=== PATIENT | male | born 1960 | race Caucasian/White ===

== ENCOUNTER 2021-01-04 08:30 | Emergency (ER) | payer OTHER ==
[~2021-01-04] VITALS: Ht 188 cm; Wt 113.0 kg
--- NOTE | 2021-01-04 08:51 | PHYS DOC ---
Past Medical History Past Medical History: No Pertinent History Past Surgical History: No Surgical History General Adult EDM: Chief Complaint: LACERATION/AVULSION HPI: HPI: Patient is a 60 year old male who was brought here for evaluation of crush injury to his right thumb, happened at work prior to arrival. Patient said his right thumb got caught between machine roller. He is not up to date on his tetanus vaccination status. Patient denied any other injury. Review of Systems: Review of Systems: Constitutional: Denies fever or chills. [] Eyes: Denies change in visual acuity. [] HENT: Denies nasal congestion or sore throat. [] Respiratory: Denies cough or shortness of breath. [] Cardiovascular: Denies chest pain or edema. [] GI: Denies abdominal pain, nausea, vomiting, bloody stools or diarrhea. [] : Denies dysuria. [] Musculoskeletal: Positive for right thumb injury. Integument: Denies rash. [] Neurologic: Denies headache, focal weakness or sensory changes. [] Endocrine: Denies polyuria or polydipsia. [] Lymphatic: Denies swollen glands. [] Psychiatric: Denies depression or anxiety. [] Heart Score: Risk Factors: Risk Factors: DM, Current or recent (<one month) smoker, HTN, HLP, family history of CAD, obesity. Risk Scores: Score 0 - 3: 2.5% MACE over next 6 weeks - Discharge Home Score 4 - 6: 20.3% MACE over next 6 weeks - Admit for Clinical Observation Score 7 - 10: 72.7% MACE over next 6 weeks - Early Invasive Strategies Physical Exam: PE: Constitutional: Well developed, well nourished, no acute distress, non-toxic appearance. [] HENT: Normocephalic, atraumatic, bilateral external ears normal, oropharynx moist, no oral exudates, nose normal. [] Eyes: PERRLA, EOMI, conjunctiva normal, no discharge. [] Neck: Normal range of motion, no tenderness, supple, no stridor. [] Cardiovascular:Heart rate regular rhythm, no murmur [] Lungs & Thorax: Bilateral breath sounds clear to auscultation [] Abdomen: Bowel sounds normal, soft, no tenderness, no masses, no pulsatile masses. [] Skin: Warm, dry, no erythema, no rash. [] Back: No tenderness, no CVA tenderness. [] Extremities: The pad of the right thumb with crushed injury, skin was jagged, contused, lacerated multiple place, no bone exposed, actively bleeding...No tendon injury. Neurologic: Alert and oriented X 3, normal motor function, normal sensory function, no focal deficits noted. [] Psychologic: Affect normal, judgement normal, mood normal. [] EKG: EKG: [] Radiology/Procedures: Radiology/Procedures: [][facility] [address] [place] [address] IMAGING REPORT Signed PATIENT: KARINE HAND JACCOUNT: [id number] : 1960 LOCATION: ER AGE: 60 SEX: M EXAM STATUS: REG ER ORD. PHYSICIAN: HOLLI PINA DO REASON: right thumb injury, smashed in printing press PROCEDURE: FINGER(S) RIGHT XR FINGER(S)_RIGHT 2+VIEWS DATE: 01/04/2021 8:55 AM INDICATION: right thumb injury, smashed in printing press / Spl. Instructions: / History: COMPARISON: None. FINDINGS: Bones: There is no evidence of acute fracture or dislocation. Joints: Mild degenerative changes of the first CMC joint and IP joints. Miscellaneous: Distal first digit soft tissue injury. No radiopaque foreign body. IMPRESSION: No evidence of acute fracture. Electronically signed by: Malou Reeves MD (01/04/2021 9:35 AM) [id number] DICTATED and SIGNED BY: MALOU REEVES MD DATE: 01/04/21 [id number] Laceration Procedure: complex laceration of the pad of right thumb Location: PAD OF RIGHT THUMB Anesthesia: DIGITAL BLOCK WITH 8 ML OF .5% MARCAINE. total lenght of laceration: 6 cm Number of sutures: 20 Suture Material: 4-0-nylon Technique: simple interrupted one layer Patient tolerated procedure well. The wound was dressed with: triple antibiotic oitnment,xerofoam nonstick gauze. Course & Med Decision Making: Course & Med Decision Making Pertinent Labs and Imaging studies reviewed. (See chart for details) Patient is a 60-year-old male who sustained a complex laceration of the pad of the right thumb. The wound was clean thoroughly with saline and Betadine , the laceration was repaired in the ER, x-ray did not show any evidence of fracture. Patient was given tetanus vaccination. Patient is scheduled to see the hand surgeon at [facility] at 2 pm tomorrow. Patient was discharged home with Keflex for antibiotic and Ewing for pain control. Dragon Disclaimer: Dragon Disclaimer: This electronic medical record was generated, in whole or in part, using a voice recognition dictation system. Departure Departure Impression: Primary Impression: Laceration of thumb, right Additional Impression: Crushing injury of right thumb, initial encounter Disposition: 01 DC HOME SELF CARE/HOMELESS Condition: STABLE Referrals: OMKAR COOK (PCP) Please follow up with [facility] , hand specialist tomorrow for reevaluation. The phone number is [phone]. Patient Instructions: Crush Injury, Fingers or Toes, Laceration Care, Adult Additional Instructions: Thank you for visiting our Emergency Department. We appreciate you trusting us with your care. If any additional problems come up don't hesitate to return to visit us. Please follow up with your primary care provider so they can plan additional care if needed and know about the problem that you had. If symptoms worsen come back to the Emergency Department. Any concerning symptoms that start such as chest pain, shortness of air, weakness or numbness on one side of the body, running high fevers or any other concerning symptoms return to the ER. Scripts Cephalexin (CEPHALEXIN) 500 Mg Capsule 1 CAP PO QID, #40 CAP Prov: HOLLI PINA DO 01/04/21 Hydrocodone/Acetaminophen (Hydrocodone-Acetamin 5-325 mg) 1 Each Tablet 1 EACH PO Q6HRS PRN for PAIN, #20 TAB Prov: HOLLI PINA DO 01/04/21 HOLLI PINA DO Jan 04, 2021 08:51
[2021-01-04] MEDS ORDERED: CEPHALEXIN 250 MG CAPSULE. ONE (09:09)
[2021-01-04] MEDS ORDERED: CEPHALEXIN 250 MG CAPSULE. PO ONE (09:30)
[2021-01-04] MEDS ORDERED: BUPIVACAINE MPF 0.5% 30 ML VIAL. INJ ONE (09:30)
[2021-01-04] MEDS ORDERED: DIPH,PERTUSS(ACELL),TET VAC/PF 0.5 ML SYRINGE. VAX IM ONE (09:30)
--- NOTE | 2021-01-04 09:38 | RAD ---
XR FINGER(S)_RIGHT 2+VIEWS DATE: 01/04/2021 8:55 AM INDICATION: right thumb injury, smashed in printing press / Spl. Instructions: / History: COMPARISON: None. FINDINGS: Bones: There is no evidence of acute fracture or dislocation. Joints: Mild degenerative changes of the first CMC joint and IP joints. Miscellaneous: Distal first digit soft tissue injury. No radiopaque foreign body. IMPRESSION: No evidence of acute fracture. Electronically signed by: Mack Reeves MD (01/04/2021 9:35 AM) [id number]
[2021-01-04 11:39] VITALS: BP 133/87
[2021-01-04] MEDS ORDERED: NEOMY/BACITR/POLYMYXIN OINT PACKET. TP ONE (11:45)
[2021-01-04] MEDS ORDERED: HYDR-2759 PO (12:08)
[2021-01-04] MEDS ORDERED: CEPH500C PO (12:08)
== END 2021-01-04 12:24 | disposition home or self-care (01) ==
LOC: ER 08:30
DX: S61.011A Laceration without foreign body of right thumb without damage to nail, initial encounter (principal); W31.89XA Contact with other specified machinery, initial encounter; Y93.89 Activity, other specified; Y92.89 Other specified places as the place of occurrence of the external cause; Y99.8 Other external cause status
CPT/HCPCS: 12002; 73140; 90471; 90715; 99285; J3490